=== PATIENT | female | born 1995 | race Caucasian/White ===

== ENCOUNTER → 2018-12-17 | Outpatient (CLI) | payer OTHER ==
[~2018-12-17] MED LIST: CEFA250 PO; IBUP600 PO; PROBIOTIC1 EAC1; Zofran Odt4 MG SL
== END | disposition home or self-care (01) ==
LOC: LAB SHORT 17:34 → LAB EV 17:34
DX: L73.9 Follicular disorder, unspecified (principal)
CPT/HCPCS: 87070; 87077; 87147; 87186; 87205

== ENCOUNTER → 2019-08-23 | Outpatient (CLI) | payer OTHER | LOC: LAB EV 13:20 → LAB SHORT 13:20 | DX: N39.0 Urinary tract infection, site not specified (principal) | CPT/HCPCS: 87077; 87086; 87186 ==

== ENCOUNTER → 2020-03-11 | Outpatient (CLI) | payer OTHER | END | disposition home or self-care (01) | LOC: LAB SHORT 09:17 → LAB EV 09:17 | DX: N39.0 Urinary tract infection, site not specified (principal) | CPT/HCPCS: 87086 ==

== ENCOUNTER → 2020-07-15 | Outpatient (CLI) | payer BC, OTHER ==
[2020-07-15 14:06] LABS: Source, Urine Voided
[2020-07-15 16:15] LABS: Appearance, Urine Clear (Clear); Bilirubin, Urine Neg (Neg); Blood, Urine 2+ (Neg); Color, Urine Yellow (P-Yellow); Glucose Qualitative, Urine Neg (Neg); Ketones, Urine Neg (Neg); Leukocyte Esterase, Urine Neg (Neg); Nitrite, Urine Neg (Neg); Protein, Urine Neg (Neg); Urobilinogen, Urine NORM (Normal)
[2020-07-15 16:45] LABS: Bacteria Few /hpf; Squamous Epithelial Cells Few /hpf (Few); White Blood Cells, Urine 0-2 /hpf (0-5)
== END | disposition home or self-care (01) ==
LOC: LAB SHORT 11:00
PROVIDERS: Advanced Practice Midwife
DX: R35.0 Frequency of micturition (principal)
CPT/HCPCS: 81001

== ENCOUNTER 2022-12-11 17:55 | Emergency (ER) | payer BC ==
[~2022-12-11] VITALS: Ht 170.2 cm; Wt 63.5 kg
[2022-12-11 18:01] VITALS: BP 126/83
[2022-12-11 18:32] LABS: BASOPHILS ABSOLUTE AUTO 0.05 K/mm3 (0.00-0.23); BASOPHILS PERCENT AUTO 1 % (0-2); EOSINOPHILS ABSOLUTE AUTO 0.07 K/mm3 (0.00-0.68); EOSINOPHILS PERCENT AUTO 1 % (0-6); Hematocrit 41.1 % (33.0-51.0); Hemoglobin 14.4 g/dL (11.5-16.0); IMMATURE GRAN ABSOLUTE AUTO 0.02 K/mm3 (0.00-0.10); IMMATURE GRAN PERCENT AUTO 0 % (0-1); LYMPHOCYTES ABSOLUTE AUTO 2.28 K/mm3 (0.84-5.20); LYMPHOCYTES PERCENT AUTO 22 % (21-46); MONOCYTES PERCENT AUTO 8 % (4-13); Mean Corpuscular HGB 31.4 pg (26.0-34.0); Mean Corpuscular Volume 90 fL (80-100); Mean Platelet Volume 8.9 fL (9.1-12.4); NEUTROPHILS ABSOLUTE AUTO 7.08 K/mm3 (1.96-9.15); NEUTROPHILS PERCENT AUTO 69 % (41-73); Platelet Count 259 K/mm3 (150-400); RDW Coefficient Variation 11.9 % (11.7-14.2); RDW Standard Deviation 38.7 fL (35.1-46.3); Red Blood Cell Count 4.59 M/mm3 (3.80-5.20)
[2022-12-11 18:59] LABS: Albumin, Blood 4.3 g/dL (3.4-5.0); Albumin/Globulin Ratio 1.4 (0.8-1.8); Bilirubin, Total 0.4 mg/dL (0.1-1.0); Bun/Creatinine Ratio 17.7 (12.0-20.0); Calcium, Blood 9.1 mg/dL (8.5-10.1); Creatinine, Blood 0.74 mg/dL (0.40-1.00); Globulin, Blood 3.1 g/dL (2.2-4.0); Potassium, Blood 4.1 mmol/L (3.5-5.5); Total Protein, Blood 7.4 g/dL (6.4-8.2)
[2022-12-11 20:03] LABS: Source, Urine Clean Catch
[2022-12-11 20:09] LABS: Appearance, Urine Clear (Clear); Bilirubin, Urine Neg (Neg); Blood, Urine 3+ (Neg); Color, Urine Yellow (P-Yellow); Glucose Qualitative, Urine Neg (Neg); Ketones, Urine Neg (Neg); Leukocyte Esterase, Urine Neg (Neg); Nitrite, Urine Neg (Neg); Protein, Urine Neg (Neg); Specific Gravity, Urine 1.015 (1.003-1.022); Urobilinogen, Urine NORM (Normal)
[2022-12-11 20:31] LABS: Bacteria Few /hpf; Squamous Epithelial Cells Few /hpf (Few); White Blood Cells, Urine 0-2 /hpf (0-5)
== END 2022-12-11 22:07 | disposition left against medical advice (07) ==
LOC: ER 17:55
PROVIDERS: Student in an Organized Health Care Education/Training Program
DX: R10.30 Lower abdominal pain, unspecified (principal); Z53.21 Procedure and treatment not carried out due to patient leaving prior to being seen by health care provider
CPT/HCPCS: 80053; 81001; 84703; 85025

== ENCOUNTER 2023-05-20 09:07 | Day surgery (SDC) | payer BC ==
[~2023-05-20] VITALS: Ht 170.2 cm; Wt 65.5 kg
[2023-05-20] VITALS (18 sets, daily range): BP systolic 93–122; BP diastolic 51–77
[~2023-05-20 09:07] MED LIST changes: +PRENATAL MULTI1 EAC5 PO
[2023-05-20] MEDS ORDERED: Lactated Ringer's 1,000 ML IV SCH ×2 (09:15→16:00)
[2023-05-20] MEDS ORDERED: NITR100CA PO (09:28)
[2023-05-20] MEDS ORDERED: Diflucan150 MG PO (09:28)
--- NOTE | 2023-05-20 10:22 | NUR ---
Pt in SDS. Ambulatory in Day Surgery. Surgical site prepped with 2% Chlorhexidine cloth wipe. History, Chart, Medications and Allergies reviewed before start of procedure. Lungs clear T/O to Auscultation. Pre-Op teaching done. Pt verbalizes understanding.
[2023-05-20] MEDS ORDERED: Bupivacaine 0.5% HCl 5 MG/ML 30MLVIAL ONE (10:43)
[2023-05-20] MEDS ORDERED: propofoL 20 ML IV ONE (10:49)
[2023-05-20] MEDS ORDERED: FentaNYL Citrate 50 MCG/ML 2 ML Injection ONE ×3 (10:49→14:11)
[2023-05-20] MEDS ORDERED: Methylene Blue 1% 100 MG/10 ML VIAL ONE (11:24)
[2023-05-20] MEDS ORDERED: Phenylephrine HCl 100 MCG/ML-NS 10MLSYR (1MG/10ML) ONE (11:27)
[2023-05-20] MEDS ORDERED: Rocuronium Bromide 10 MG/ML 5ML Injection IV ONE ×2 (11:27→13:13)
[2023-05-20] MEDS ORDERED: Atropine Sulfate 0.4 MG/1 ML Vial ONE (11:29)
[2023-05-20] MEDS ORDERED: Dexamethasone Sod Phos 10 MG/ML 1ML VIAL ONE (13:16)
[2023-05-20] MEDS ORDERED: Ondansetron HCl 2 MG / ML 2ML Vial ONE (13:16)
[2023-05-20] MEDS ORDERED: Ketorolac Tromethamine 30mg Vial ONE (13:42)
[2023-05-20] MEDS ORDERED: Sugammadex Sodium 200 MG/2ML SDV (100 MG/ML) ONE (13:47)
[2023-05-20] MEDS ORDERED: HYDROmorphone HCl/Pf 1MG SYR ONE (14:06)
[2023-05-20] MEDS ORDERED: Metoclopramide HCl 5MG / ML 2ML Vial ONE (14:17)
[2023-05-20] MEDS ORDERED: OxyCODONE 5 mg/Acetamin 325 mg TABLET PO PRN (14:20)
[2023-05-20] MEDS ORDERED: Ondansetron HCl 2 MG / ML 2ML Vial IV PRN (14:20)
--- NOTE | 2023-05-20 14:47 | NUR ---
REPORT RECEIVED FROM EARLENE SHORE. VSS. PT ON RA. PT ABLE TO REPOSITION SELF IN BED. PT REQUESTING PO FOOD AND FLUIDS AND TOLERATING THEM WELL. PT REPORTS 6/10 STINGING PAIN TO VAGINA AND MILD ABDOMINAL CRAMPING. PT HAS TAYO PAD IN PLACE WITH MINIMAL BLOOD DRAINAGE PRESENT. PT DENIES NAUSEA OR OTHER DISCOMFORTS AT THIS TIME. AT BEDSIDE.
--- NOTE | 2023-05-20 16:10 | NUR ---
1545 IV INFILTRATED. NEW IV STARTED. DR ASHRAF CONSULTED FOR PT LOW BP. DR ASHRAF ORDERED 1 LITER FLUID BOLUS. PT WAS ABLE TO WALK TO BR AND CHANGE CLOTHES BUT REPORTED DIZZINESS AND APPEARS PALE.
--- NOTE | 2023-05-20 17:11 | NUR ---
PT RESPONDED WELL TO FLUID BOLUS EVIDENCED BY SBP TRENDING IN 100S AND MAP IN 70S. OTHER VSS WELL AND CONSISTENT WITH PT BASELINE. STATES SHE FEELS MUCH BETTER AND IS READY TO D/C HOME. PT WAS ALSO ABLE TO AMBULATE TO BR AND VOID. Discharge instructions reviewed with patient. Patient verbalizes understanding. Copy given to patient to take home. PT DRESSINGS ON ABDOMEN ARE C/D/I WITHOUT DRAINAGE, REDNESS OR BLEEDING. Patient States Post-Procedure ride home has been arranged. Discharged via wheelchair to private car for ride home. PT BELONGINGS RETURNED TO PT.
== END 2023-05-20 17:19 | disposition home or self-care (01) ==
LOC: ORSCMMR 09:07 → ORD 10:45 → ORSCMMR 17:19
PROVIDERS: Obstetrics & Gynecology
PROC: 3E1P38Z Irrigation of Female Reproductive using Irrigating Substance, Percutaneous Approach (ICD-10-PCS; principal; 2023-05-20 10:45)
PROC: 0UBF4ZX Excision of Cul-de-sac, Percutaneous Endoscopic Approach, Diagnostic (ICD-10-PCS; principal; 2023-05-20 10:45)
PROC: 8E0W4CZ Robotic Assisted Procedure of Trunk Region, Percutaneous Endoscopic Approach (ICD-10-PCS; principal; 2023-05-20 10:45)
PROC: 0UB44ZX Excision of Uterine Supporting Structure, Percutaneous Endoscopic Approach, Diagnostic (ICD-10-PCS; principal; 2023-05-20 10:45)
DX: N80.329 Endometriosis of the posterior cul-de-sac, unspecified depth (principal); E03.9 Hypothyroidism, unspecified; Z79.899 Other long term (current) drug therapy
CPT/HCPCS: 84703; 88305; A9270; J0461; J1100; J1170; J1885; J2371; J2405; J2704; J2765; J3010; J7120; Q9968

== ENCOUNTER → 2023-09-26 | Outpatient (CLI) | payer BC ==
[~2023-09-26] MED LIST changes: +Diflucan150 MG PO; +NITR100CA PO
[2023-09-26 18:37] LABS: Bacterial Vaginosis PCR Negative (NEGATIVE); Candida Group, PCR NOT DETECTED (NOT DETECT)
[2023-09-26 20:06] LABS: Candida glabrata-krusei, PCR DETECTED (NOT DETECT)
== END | disposition home or self-care (01) ==
LOC: LAB 16:03 → LAB SHORT 16:03
PROVIDERS: Advanced Practice Midwife
DX: N76.1 Subacute and chronic vaginitis (principal)
CPT/HCPCS: 87481; 87661; 87801

== ENCOUNTER → 2023-12-10 | Outpatient (CLI) | payer BC | END | disposition home or self-care (01) | LOC: LAB SHORT 11:35 → LAB 11:35 | PROVIDERS: Advanced Practice Midwife | DX: Z01.419 Encounter for gynecological examination (general) (routine) without abnormal findings (principal) | CPT/HCPCS: G0123 ==

== ENCOUNTER → 2024-03-10 | Outpatient (CLI) | payer BC ==
[2024-03-10 19:53] LABS: Bacterial Vaginosis PCR Negative (NEGATIVE); Candida Group, PCR NOT DETECTED (NOT DETECT); Candida glabrata-krusei, PCR NOT DETECTED (NOT DETECT)
== END ==
LOC: LAB SHORT 15:00 → LAB 15:00
PROVIDERS: Advanced Practice Midwife
DX: O26.859 Spotting complicating pregnancy, unspecified trimester (principal); Z3A.00 Weeks of gestation of pregnancy not specified
CPT/HCPCS: 87481; 87661; 87801

== ENCOUNTER → 2024-04-15 | Outpatient (CLI) | payer BC ==
[2024-04-15 16:58] LABS: Bacterial Vaginosis PCR Negative (NEGATIVE); Candida Group, PCR NOT DETECTED (NOT DETECT); Candida glabrata-krusei, PCR NOT DETECTED (NOT DETECT)
[2024-04-17 18:20] LABS: APTIMA MEDIA TYPE Unisex Swab; C. TRACHOMATIS BY TMA Negative (Negative); N. GONORRHOEAE BY TMA Negative (Negative); SPECIMEN SOURCE Vaginal
== END ==
LOC: LAB SHORT 14:29
PROVIDERS: Advanced Practice Midwife
DX: O46.90 Antepartum hemorrhage, unspecified, unspecified trimester (principal); Z11.3 Encounter for screening for infections with a predominantly sexual mode of transmission
CPT/HCPCS: 81515; 87491; 87591

== ENCOUNTER → 2024-04-22 | Outpatient (CLI) | payer BC ==
[2024-04-23 11:48] LABS: Bacterial Vaginosis PCR Negative (NEGATIVE); Candida Group, PCR NOT DETECTED (NOT DETECT); Candida glabrata-krusei, PCR NOT DETECTED (NOT DETECT)
== END ==
LOC: LAB 15:44 → LAB SHORT 15:44
PROVIDERS: Advanced Practice Midwife
DX: N89.8 Other specified noninflammatory disorders of vagina (principal)
CPT/HCPCS: 81515

== ENCOUNTER 2024-09-26 04:11 | Inpatient (IN) | payer BC ==
[~2024-09-26] VITALS: Ht 170.2 cm; Wt 83.6 kg
[2024-09-26] VITALS (38 sets, daily range): BP systolic 92–141; BP diastolic 51–83
[2024-09-26] MEDS ORDERED: Penicillin G Potassium 5,000,000 UNITS in NS 250 ML IV ONE (06:40)
[2024-09-26] MEDS ORDERED: Ondansetron HCl 2 MG / ML 2ML Vial ONE (07:15)
[2024-09-26] MEDS ORDERED: Ondansetron HCl 2 MG / ML 2ML Vial IV ONE (07:30)
[2024-09-26] MEDS ORDERED: ePHEDrine Sulfate 50 MG/ML 1ML Injection XX PRN (10:00)
[2024-09-26] MEDS ORDERED: Acetaminophen 500 MG Tab PO PRN (10:00)
[2024-09-26] MEDS ORDERED: Ondansetron HCl 2 MG / ML 2ML Vial IV PRN ×2 (10:00→13:55)
[2024-09-26] MEDS ORDERED: FentaNYL 2mcg/ml-Bup 0.1% Epd 250 ML EPI PRN (10:00)
[2024-09-26] MEDS ORDERED: Lactated Ringer's 1,000 ML IV PRN ×3 (10:00)
[2024-09-26] MEDS ORDERED: Misoprostol 200 MCG Tab PR PRN ×2 (10:00→23:45)
[2024-09-26] MEDS ORDERED: Oxytocin 10 Unit / ML Vial IM PRN (10:00)
[2024-09-26] MEDS ORDERED: Methylergonovine Maleate 0.2MG / ML 1ML Amp IM PRN ×2 (10:00→23:45)
[2024-09-26] MEDS ORDERED: Carboprost Tromethamine 250 MCG/ML 1ML Amp IM PRN ×2 (10:00→23:45)
[2024-09-26] MEDS ORDERED: OXYTOCIN/RINGER'S LACTATE 500 ML IV PRN (10:00)
[2024-09-26] MEDS ORDERED: Misoprostol 200 MCG Tab BC PRN (10:00)
[2024-09-26] MEDS ORDERED: FentaNYL Citrate 50 MCG/ML 2 ML Injection IV PRN (10:00)
[2024-09-26] MEDS ORDERED: Calcium Carbonate 500 MG Tab Chew PO PRN (10:05)
[2024-09-26 10:09] LABS: BASOPHILS ABSOLUTE AUTO 0.06 K/mm3 (0.00-0.23); BASOPHILS PERCENT AUTO 0 % (0-2); EOSINOPHILS ABSOLUTE AUTO 0.09 K/mm3 (0.00-0.68); EOSINOPHILS PERCENT AUTO 1 % (0-6); Hematocrit 39.9 % (33.0-51.0); Hemoglobin 14.2 g/dL (11.5-16.0); IMMATURE GRAN ABSOLUTE AUTO 0.21 K/mm3 (0.00-0.10); IMMATURE GRAN PERCENT AUTO 2 % (0-1); LYMPHOCYTES ABSOLUTE AUTO 1.89 K/mm3 (0.84-5.20); LYMPHOCYTES PERCENT AUTO 14 % (21-46); MONOCYTES ABSOLUTE AUTO 1.13 K/mm3 (0.16-1.47); MONOCYTES PERCENT AUTO 8 % (4-13); Mean Corpuscular HGB 32.8 pg (26.0-34.0); Mean Corpuscular HGB Conc 35.6 g/dL (31.5-36.5); Mean Corpuscular Volume 92 fL (80-100); Mean Platelet Volume 9.9 fL (9.1-12.4); NEUTROPHILS ABSOLUTE AUTO 10.28 K/mm3 (1.96-9.15); NEUTROPHILS PERCENT AUTO 75 % (41-73); Platelet Count 211 K/mm3 (150-400); RDW Coefficient Variation 15.2 % (11.7-14.2); RDW Standard Deviation 51.4 fL (35.1-46.3); Red Blood Cell Count 4.33 M/mm3 (3.80-5.20); White Blood Cell Count 13.66 K/mm3 (4.00-11.30)
[2024-09-26] MEDS ORDERED: Tranexamic Acid 100 ML IV SCH (10:10)
[2024-09-26] MEDS ORDERED: DULCOLAX5 MG PO (10:12)
[2024-09-26] MEDS ORDERED: GAS X PO (10:12)
[2024-09-26] MEDS ORDERED: Penicillin G Potassium 2,500,000 UNITS in Dextrose 5% 100 ML IV SCH ×2 (12:00→22:00)
[2024-09-26] MEDS ORDERED: DiphenhydrAMINE HCl 50 MG/ML 1ML Vial IV PRN (13:55)
[2024-09-26] MEDS ORDERED: Naloxone HCl 0.4MG / ML 1ML Vial IV PRN (13:55)
[2024-09-26] MEDS ORDERED: Metoclopramide HCl 5MG / ML 2ML Vial IV PRN (13:55)
[2024-09-26] MEDS ORDERED: ePHEDrine Sulfate 50 MG/ML 1ML Injection IV PRN (13:55)
[2024-09-26] MEDS ORDERED: Ketorolac Tromethamine 30mg Vial IV PRN (23:40)
[2024-09-26] MEDS ORDERED: Docusate Sodium 100 MG Cap PO PRN (23:45)
[2024-09-26] MEDS ORDERED: Ibuprofen 400 MG Tab PO PRN (23:45)
[2024-09-26] MEDS ORDERED: Lactated Ringer's 1,000 ML IV SCH (23:45)
[2024-09-26] MEDS ORDERED: Witch Hazel/Glycerin PADS TOP PRN (23:45)
[2024-09-26] MEDS ORDERED: Tranexamic Acid 100 ML IV PRN (23:45)
[2024-09-26] MEDS ORDERED: Lanolin Cream TOP PRN (23:50)
[2024-09-26] MEDS ORDERED: OXYTOCIN/RINGER'S LACTATE 500 ML IV SCH (23:50)
[2024-09-26] MEDS ORDERED: Benzocaine Topical Anesthetic Spray 60GM TOP PRN (23:50)
[2024-09-27] VITALS (9 sets, daily range): BP systolic 90–122; BP diastolic 50–64
[2024-09-27] MEDS ORDERED: IBUP800 PO (08:25)
[2024-09-27] MEDS ORDERED: Prenatal Vit/FE Fumarate/FA 1 Tab PO SCH (09:00)
== END 2024-09-27 17:20 | disposition home or self-care (01) | DRG 806 ==
LOC: OBS 04:11 → BC 04:13 → OBS 09:45 → BC 09:54
PROVIDERS: ADMIT Obstetrics & Gynecology
PROC: 10E0XZZ Delivery of Products of Conception, External Approach (ICD-10-PCS; principal; 2024-09-26)
PROC: 0KQM0ZZ Repair Perineum Muscle, Open Approach (ICD-10-PCS; 2024-09-26)
PROC: 4A1HXCZ Monitoring of Products of Conception, Cardiac Rate, External Approach (ICD-10-PCS; 2024-09-26)
PROC: 10907ZC Drainage of Amniotic Fluid, Therapeutic from Products of Conception, Via Natural or Artificial Opening (ICD-10-PCS; 2024-09-26)
DX: O48.0 Post-term pregnancy (principal); E72.12 Methylenetetrahydrofolate reductase deficiency; Z37.0 Single live birth; Z3A.40 40 weeks gestation of pregnancy; O99.824 Streptococcus B carrier state complicating childbirth; O99.02 Anemia complicating childbirth; O99.284 Endocrine, nutritional and metabolic diseases complicating childbirth; Z88.1 Allergy status to other antibiotic agents; O70.1 Second degree perineal laceration during delivery
CPT/HCPCS: 36415; 51702; 59025; 85025; 86850; 86900; 86901; 99214; A9270; J1200; J1885; J2405; J2540; J7050; J7120

== ENCOUNTER → 2025-01-28 | Outpatient (CLI) | payer BC ==
[~2025-01-28] MED LIST changes: +DULCOLAX5 MG PO; +GAS X PO; +IBUP800 PO
== END ==
LOC: LAB 15:06 → LAB SHORT 15:06
DX: R10.20 Pelvic and perineal pain unspecified side (principal)
CPT/HCPCS: 87086; 87147